=== PATIENT | female | born 2000 | race Caucasian/White ===

== ENCOUNTER 2020-03-11 12:06 | Emergency (ER) | payer MEDICAID ==
[~2020-03-11] VITALS: Ht 172.7 cm; Wt 56.7 kg
[2020-03-11 12:21] VITALS: BP 120/78
[2020-03-11] MEDS ORDERED: birth control (12:27)
--- NOTE | 2020-03-11 12:29 | NUR ---
ED Nurse Note: Pt from home walked in due to syncopal epsiodes last night witnessed by her sister. Pt felt dizzy and fell then hit her posterior head on the floor. No signs of hematoma at this time. AAO x4, ambulatory with non labored breathing.
--- NOTE | 2020-03-11 13:04 | Diagnostic Imaging Report ---
Indications: Syncope Technique: Spiral acquisitions obtained through the brain. Angled axial and coronal 5 x 5 mm slices were reconstructed. Total dose length product 1045 mGycm. CTDI vol(s) 53 mGy. Dose reduction achieved using automated exposure control Comparison: None. Findings: No acute intracranial hemorrhage or edema. No mass effect nor midline shift. Normal dasilva-white differentiation. Intact calvarium. Normal size ventricles and extra axial CSF spaces. Mastoids are clear. Visualized orbits and sinuses are unremarkable Impression: Negative The CT scanner at [facility] is accredited by the [employer] and the scans are performed using protocols designed to limit radiation exposure to as low as reasonably achievable to attain images of sufficient resolution adequate for diagnostic evaluation.
--- NOTE | 2020-03-11 13:05 | NUR ---
ED Nurse Note: Collected blood/urine then sent.
[2020-03-11 13:15] LABS: HEMATOCRIT 38.9 % (37.0-47.0); HEMOGLOBIN 14.3 G/DL (12.0-16.0); MEAN CORPUSCULAR VOLUME 85 FL (80-99); PLATELET COUNT 185 K/UL (150-450); RED CELL DISTRIBUTION WIDTH 11.3 % (11.6-14.8); WHITE BLOOD COUNT 5.9 K/UL (4.8-10.8)
[2020-03-11 13:20] LABS: APPEARANCE,URINE CLEAR; BILIRUBIN, URINE NEGATIVE (NEGATIVE); GLUCOSE, URINE (UA) NEGATIVE (NEGATIVE); KETONES,URINE NEGATIVE (NEGATIVE); LEUKOCYTE ESTERASE ,URINE 1+ (NEGATIVE); NITRITE,URINE NEGATIVE (NEGATIVE); PH,URINE 8 (4.5-8.0); PROTEIN,URINE NEGATIVE (NEGATIVE); UROBILINOGEN,URINE 8 MG/DL (0.0-1.0)
[2020-03-11 13:22] LABS: ANION GAP 12 mmol/L (5-15); BLOOD UREA NITROGEN 12 mg/dL (7-18); CALCIUM 8.7 MG/DL (8.5-10.1); CARBON DIOXIDE 25 MMOL/L (21-32); CHLORIDE 105 MMOL/L (98-107); SODIUM 142 MMOL/L (136-145)
[2020-03-11 13:24] LABS: COLOR,URINE YELLOW
[2020-03-11 13:26] LABS: ALANINE AMINOTRANSFERASE 20 U/L (12-78); ALBUMIN 3.8 G/DL (3.4-5.0); ALBUMIN/GLOBULIN RATIO 1.1 (1.0-2.7); ALKALINE PHOSPHATASE 58 U/L (46-116); ASPARTATE AMINO TRANSFERASE 19 U/L (15-37); BILIRUBIN,TOTAL 0.7 MG/DL (0.2-1.0)
--- NOTE | 2020-03-11 14:03 | Emergency Room Report ---
History of Present Illness General Chief Complaint: Syncope Source: Patient Present Illness HPI 19-year-old female with no symptom past medical history here complaining of a head injury after syncope that occurred last night. Patient reports that he she was opening the door last night after they got back from shopping with her sister as she felt dizzy and landed on the back of her head. According to her sister patient has been unconscious for 5 seconds. Denies any blurry vision at this time. Reports that she was nauseated last night. Denies any nausea blurred vision right now. Denies any dizziness or headache. No signs of trauma noted in the scalp. Reports that prior to falling patient was dizzy all day and has not had any oral hydration. Denies any cardiac history. Denies drug use. Denies chest pain, shortness of breath, headache and dizziness. Denies any recent travel. Reports about a month ago she smoked marijuana however nothing recent. Denies at this time. Patient is neurovascularly intact. Denies any unilateral generalized weakness. Allergies: Coded Allergies: AZITHROMYCIN (Verified Allergy, Unknown, 03/11/20) COVID-19 Screening Contact w/high risk pt: No Recent Travel to affected area: No Experienced COVID-19 symptoms?: No COVID-19 Testing performed [employer]: No Patient History Past Medical History: see triage record Past Surgical History: none Pertinent Family History: none Now: No Immunizations: UTD Reviewed Nursing Documentation: PMH: Agreed; PSxH: Agreed Nursing Documentation-PMH Past Medical History: No Stated History Review of Systems All Other Systems: negative except mentioned in HPI Physical Exam Vital Signs Date Time Temp Pulse Resp B/P (MAP) Pulse Ox O2 Delivery O2 Flow Rate FiO2 03/11/20 12:21 98.4 91 17 120/78 99 Room Air Sp02 EP Interpretation: reviewed, normal General Appearance: no apparent distress, alert, GCS 15, non-toxic Head: normocephalic, atraumatic Eyes: bilateral eye normal inspection, bilateral eye PERRL ENT: hearing grossly normal, normal pharynx, no angioedema, normal voice Neck: full range of motion, supple/symm/no masses Respiratory: chest non-tender, lungs clear, normal breath sounds, no rhonchi, no respiratory distress, no retraction, speaking full sentences Cardiovascular #1: regular rate, rhythm, no edema Gastrointestinal: normal bowel sounds, non tender, soft, non-distended, no guarding, no rebound Genitourinary: no CVA tenderness Musculoskeletal: back normal Neurologic: alert, motor strength/tone normal, oriented x3, sensory intact, responsive, speech normal Psychiatric: judgement/insight normal, memory normal, mood/affect normal, no suicidal/homicidal ideation Skin: no rash Lymphatic: no adenopathy Medical Decision Making PA Attestation All my diagnosis and treatment plans were reviewed ad discussed with my supervising physician Dr. Crews Diagnostic Impression: Primary Impression: Syncope Additional Impressions: Head contusion Marijuana use UTI (urinary tract infection) ER Course 19-year-old female with no symptom past medical history here complaining of a head injury after syncope that occurred last night. Patient reports that he she was opening the door last night after they got back from shopping with her sister as she felt dizzy and landed on the back of her head. According to her sister patient has been unconscious for 5 seconds. Denies any blurry vision at this time. Reports that she was nauseated last night. Denies any nausea blurred vision right now. Denies any dizziness or headache. No signs of trauma noted in the scalp. Reports that prior to falling patient was dizzy all day and has not had any oral hydration. Denies any cardiac history. Denies drug use. Denies chest pain, shortness of breath, headache and dizziness. Denies any recent travel. Reports about a month ago she smoked marijuana however nothing recent. Denies at this time. Patient is neurovascularly intact. Denies any unilateral generalized weakness. Ddx considered but are not limited to: cerebral hematoma, concussion, skull fracture, head contusion, dizziness due to cardiac reasons, dizziness to 2 CVA or TIA, dizziness due to dehydration, unknown dizziness and syncope, Vital signs: are WNL, pt. is afebrile H&PE are most consistent with: Head contusion, syncope most likely due to dehydration, marijuana use, UTI incidental ORDERS: head CT no contrast, CBC, CMP, UA, tox screen, urine test, troponin, EKG, chest x-ray, PT and PTT, Tylenol, Zofran, Macrobid ED INTERVENTIONS: NS bolus DISCHARGE: At this time pt. is stable for d/c to home. Will provide printed patient care instructions, and any necessary prescriptions. Care plan and follow up instructions have been discussed with the patient prior to discharge. Patient to follow primary doctor pending Comments syncope versus cardiac referral to family health nurse practitioner. Patient take medication as directed, if worsening symptom return to the emergency room. EKG Diagnostic Results Rate: normal Rhythm: NSR ST Segments: no acute changes Other Impression No acute ST changes Chest X-Ray Diagnostic Results Chest X-Ray Diagnostic Results : Chest X-Ray Ordered: Yes # of Views/Limited/Complete: 1 View Indication: Other EP Interpretation: Yes PA Xray: Interpretation reviewed, by supervising MD, and agrees with findings. Interpretation: no consolidation, no effusion, no pneumothorax Impression: No acute disease Electronically Signed by: Bart Shearer PA-C CT/MRI/US Diagnostic Results CT/MRI/US Diagnostic Results : Imaging Test Ordered: CT head no contrast Impression No intracranial bleed, no skull fracture Last Vital Signs Date Time Temp Pulse Resp B/P (MAP) Pulse Ox O2 Delivery O2 Flow Rate FiO2 03/11/20 12:21 98.4 92 17 120/78 (92) 99 Room Air Disposition: HOME, SELF-CARE Condition: Stable Scripts Nitrofurantoin Monohyd/M-Cryst* (MACROBID 100 MG*) 100 Mg Capsule 100 MG ORAL EVERY 12 HOURS for 7 Days, #14 CAP Prov: Bart Moreira 03/11/20 Acetaminophen* (TYLENOL EXTRA STRENGTH*) 500 Mg Tablet 500 MG ORAL Q8H PRN for Prn Headache/Temp > 101, #30 TAB 0 Refills Prov: Bart Moreira 03/11/20 Ondansetron (Zofran) 4 Mg Tablet 4 MG ORAL Q6H PRN for Nausea & Vomiting, #10 TAB Prov: Bart Moreira 03/11/20 Patient Instructions: Cannabis Use Disorder, Facial or Scalp Contusion, Easy-to -Read, Syncope, Urinary Tract Infection, [id number] Additional Instructions: take Medication as directed, follow primary doctor, increase oral hydration, if worsening symptoms return to the emergency room Bart Moreira Mar 11, 2020 14:02
[2020-03-11] MEDS ORDERED: TYLENOL EXTRA500 MG ORAL (14:05)
[2020-03-11] MEDS ORDERED: ZOFRAN4 M1 ORAL (14:05)
[2020-03-11] MEDS ORDERED: NITROFURANTOIN100 M2 ORAL (14:05)
[2020-03-11 14:22] VITALS: BP 128/75
--- NOTE | 2020-03-11 14:22 | NUR ---
ER DISCHARGE NOTE: Patient is cleared to be discharged per PA, pt is aox4, on room air, with stable vital signs. pt was given dc and prescription instructions, pt was able to verbalize understanding, pt id band and iv site removed without complications. pt is able to ambulate with steady gait. pt took all belongings.
--- NOTE | 2020-03-11 15:40 | Diagnostic Imaging Report ---
Indication: Chest pain Technique: One view of the chest Comparison: none Findings: Lungs and pleural spaces are clear. Heart size is normal. Impression: No acute process
== END 2020-03-11 14:22 | disposition home or self-care (01) ==
LOC: EMR 14:03
DX: S00.93XA Contusion of unspecified part of head, initial encounter (principal); R55 Syncope and collapse; F12.90 Cannabis use, unspecified, uncomplicated; N39.0 Urinary tract infection, site not specified; W19.XXXA Unspecified fall, initial encounter; Y92.9 Unspecified place or not applicable; Z88.8 Allergy status to other drugs, medicaments and biological substances
CPT/HCPCS: 36415; 70450; 71045; 80053; 80307; 81003; 81025; 84484; 85007; 85025; 85610; 85730; 93005; 96360; G0480; J7030; Z7502; 99284